=== PATIENT | female | born 1965 | race Caucasian/White ===

== ENCOUNTER 2025-05-17 15:26 | Inpatient (IN) | payer OTHER ==
[~2025-05-17] VITALS: Ht 167.6 cm; Wt 86.3 kg
[2025-05-17 16:48] LABS: PLATELET COUNT (AUTO) 124 K/uL (150-450); RED BLOOD CELL COUNT(AUTO) 3.81 MIL/uL (4.00-5.20); RED CELL DISTRIBUTION WIDTH 18.4 % (11.5-14.5); WHITE BLOOD COUNT (AUTO) 6.4 K/uL (4.5-11.0)
[2025-05-17 16:56] LABS: CALCIUM, TOTAL 9.2 mg/dL (8.8-10.5); CREATININE 0.84 mg/dL (0.60-1.30); GLOMERULAR FILTR. RATE CALC > 60 mL/min (>60); GLUCOSE,RANDOM 93 mg/dL (70-110); SODIUM SERUM 136 mmol/L (136-145); UREA NITROGEN, BLOOD 8 mg/dL (7-18)
[2025-05-17 17:29] LABS: PH,URINE DRUG SCREEN 6.5 (5.0-8.0)
[2025-05-17 17:34] LABS: AMPHET/METH SCREEN,URINE NEGATIVE (NEGATIVE); BARBITURATE SCREEN, URINE NEGATIVE (NEGATIVE); CANNABINOID SCREEN,URINE NEGATIVE (NEGATIVE); COCAINE SCREEN,URINE NEGATIVE (NEGATIVE); METHADONE SCREEN, URINE NEGATIVE (NEGATIVE)
[2025-05-17 17:35] LABS: ALCOHOL, URINE DRUG SCREEN POSITIVE (NEGATIVE)
[2025-05-17] MEDS: 1: MAGNESIUM SULFATE 2 GM, MVI, ADULT NO.1 WITH VIT K 10 ML, THIAMINE 100 MG, FOLIC ACID IV SCH (20:42)
[2025-05-17] MEDS: DOCUSATE SODIUM 100 MG CAPSULE PO SCH (21:00)
[2025-05-17] MEDS: ONDANSETRON HCL 4 MG/2 ML VIAL IVP PRN (21:36)
[2025-05-17 22:19] VITALS: BP 140/87; PULSE 86; RESP 18; TEMP 97.9; O2SAT 94
[2025-05-18] MEDS: HEPARIN SODIUM,PORCINE 5,000 UNITS/ML VIAL SQ SCH (01:36)
[2025-05-18] MEDS ORDERED: DEXTROSE 50%-WATER 25 GM/50 ML SYRINGE IVP PRN (02:30)
[2025-05-18 05:06] VITALS: BP 147/85; PULSE 78; RESP 18; TEMP 98.1; O2SAT 95
[2025-05-18 07:26] LABS: CALCIUM, TOTAL 9.0 mg/dL (8.8-10.5); CREATININE 0.63 mg/dL (0.60-1.30); GLOMERULAR FILTR. RATE CALC > 60 mL/min (>60); GLUCOSE,RANDOM 121 mg/dL (70-110); SODIUM SERUM 131 mmol/L (136-145); UREA NITROGEN, BLOOD 7 mg/dL (7-18)
[2025-05-18 07:27] LABS: PLATELET COUNT (AUTO) 106 K/uL (150-450); RED BLOOD CELL COUNT(AUTO) 3.69 MIL/uL (4.00-5.20); RED CELL DISTRIBUTION WIDTH 17.8 % (11.5-14.5); WHITE BLOOD COUNT (AUTO) 5.2 K/uL (4.5-11.0)
[2025-05-18 07:51] LABS: GLUCOMETER DEV NAME(LOC) 6N.2C; GLUCOSE,POINT OF CARE 131 MG/DL (70-110)
[2025-05-18 08:00] VITALS: BP 172/96; PULSE 104; RESP 19; TEMP 100.6; O2SAT 97
[2025-05-18 09:22] VITALS: TEMP 99.3
[2025-05-18] MEDS: ACETAMINOPHEN 325 MG TABLET PO PRN (10:01)
[2025-05-18 10:39] LABS: RBC MORPHOLOGY COMMENT ABNORMAL RBC MORPH
[2025-05-18] MEDS: INSULIN LISPRO 100 UNITS/ML SQ PRN (11:58)
[2025-05-18] MEDS: LORazepam 2 MG/ML VIAL IVP ONE (12:29)
[2025-05-18] MEDS: PIPERACILLIN/TAZO 3.375 GM/D5W 50 ML IV SCH (12:29)
[2025-05-18] MEDS: LABETALOL HCL 5 MG/ML 20 ML VIAL IVP PRN (13:09)
[2025-05-18 13:25] VITALS: TEMP 98.2
[2025-05-18 13:36] LABS: GLUCOMETER DEV NAME(LOC) 6N.2C; GLUCOSE,POINT OF CARE 151 MG/DL (70-110)
[2025-05-18] MEDS ORDERED: SODIUM CHLORIDE 0.9% 250 ML IV ONE (14:30)
[2025-05-18] MEDS: DEXMEDETOMIDINE 400 MCG/NS 100 ML IV PRN (14:31)
[2025-05-18 16:00] VITALS: PULSE 94; TEMP 99.5
[2025-05-18] MEDS: LORazepam 2 MG/ML VIAL IVP PRN (16:03)
[2025-05-18] MEDS: FLUTICASONE PROPIONATE 50 MCG/SPRAY 16 GM NASAL SPRAY NASAL SCH (17:45)
[2025-05-18] MEDS: LABETALOL HCL 100 MG TABLET PO SCH (18:10)
[2025-05-18 20:00] VITALS: BP 103/80; PULSE 102; RESP 14; TEMP 99.2
[2025-05-18 20:20] LABS: GLUCOMETER DEV NAME(LOC) ICUN.7; GLUCOSE,POINT OF CARE 104 MG/DL (70-110)
[2025-05-19] VITALS (7 sets, daily range): BP systolic 81–131; BP diastolic 46–85; PULSE 70–83; RESP 14–18; TEMP 97–98.8; O2SAT 94–100
[2025-05-19 04:06] LABS: GLUCOMETER DEV NAME(LOC) ICU.S7; GLUCOSE,POINT OF CARE 113 MG/DL (70-110)
[2025-05-19 05:54] LABS: PLATELET COUNT (AUTO) 77 K/uL (150-450); RED BLOOD CELL COUNT(AUTO) 3.54 MIL/uL (4.00-5.20); RED CELL DISTRIBUTION WIDTH 17.1 % (11.5-14.5); WHITE BLOOD COUNT (AUTO) 4.1 K/uL (4.5-11.0)
[2025-05-19 06:03] LABS: CALCIUM, TOTAL 9.2 mg/dL (8.8-10.5); CREATININE 0.75 mg/dL (0.60-1.30); GLOMERULAR FILTR. RATE CALC > 60 mL/min (>60); GLUCOSE,RANDOM 111 mg/dL (70-110); SODIUM SERUM 128 mmol/L (136-145); UREA NITROGEN, BLOOD 11 mg/dL (7-18)
[2025-05-19 08:04] LABS: RBC MORPHOLOGY COMMENT ABNORMAL RBC MORPH
[2025-05-19 08:16] LABS: GLUCOMETER DEV NAME(LOC) ICU.S7; GLUCOSE,POINT OF CARE 143 MG/DL (70-110)
[2025-05-19 11:16] LABS: GLUCOMETER DEV NAME(LOC) ICUN.7; GLUCOSE,POINT OF CARE 144 MG/DL (70-110)
[2025-05-19 19:55] LABS: GLUCOMETER DEV NAME(LOC) ICU.S7; GLUCOSE,POINT OF CARE 124 MG/DL (70-110)
[2025-05-20 00:31] VITALS: BP 92/58; PULSE 69; RESP 16; TEMP 98.1; O2SAT 97
[2025-05-20 04:28] VITALS: BP 110/71; PULSE 72; RESP 17; TEMP 98.1; O2SAT 99
[2025-05-20 07:55] VITALS: BP 122/80; PULSE 71; RESP 18; TEMP 98; O2SAT 98
[2025-05-20 10:57] VITALS: BP 117/66; PULSE 64; RESP 18; TEMP 97.8; O2SAT 97
[2025-05-20 15:23] VITALS: BP 141/90; PULSE 75; RESP 19; TEMP 98.2; O2SAT 97
[2025-05-20] MEDS ORDERED: SODIUM CHLORIDE 0.9% 0 ML ONE (15:25)
[2025-05-21 08:26] LABS: GLUCOMETER DEV NAME(LOC) 5S.1E; GLUCOSE,POINT OF CARE 109 MG/DL (70-110)
[2025-05-21 08:26] LABS: GLUCOMETER DEV NAME(LOC) 5S.1E; GLUCOSE,POINT OF CARE 102 MG/DL (70-110)
[2025-05-21 08:26] LABS: GLUCOMETER DEV NAME(LOC) 5S.1E; GLUCOSE,POINT OF CARE 99 MG/DL (70-110)
== END 2025-05-20 17:00 | disposition short-term general hospital (02) | DRG 91 ==
LOC: EMS 15:37 → EDH 20:08 → 6S 22:03 → ICU 05-18 13:20 → 5S 05-19 18:40
PROVIDERS: ADMIT Internal Medicine; ATTEND Internal Medicine
DX: G92.8 Other toxic encephalopathy (principal); J69.0 Pneumonitis due to inhalation of food and vomit; F10.239 Alcohol dependence with withdrawal, unspecified; E46 Unspecified protein-calorie malnutrition; E11.9 Type 2 diabetes mellitus without complications; E87.1 Hypo-osmolality and hyponatremia; F10.229 Alcohol dependence with intoxication, unspecified; F41.9 Anxiety disorder, unspecified; Y90.8 Blood alcohol level of 240 mg/100 ml or more; Z68.30 Body mass index [BMI] 30.0-30.9, adult
CPT/HCPCS: 70450; 71250; 72125; 80048; 80307; 82962; 83735; 85025; 87081; 96365; 96366; 97116; 97162; 99285; G0480; J1644; J2060; J2405; J2543; J3411; J3475; J3490; J7030; J7050; 36415-L1; 36415-TC

== ENCOUNTER 2025-06-18 14:07 | Inpatient (IN) | payer OTHER ==
[~2025-06-18] VITALS: Ht 172.7 cm; Wt 72.2 kg
[2025-06-18 16:02] LABS: CALCIUM, TOTAL 8.9 mg/dL (8.8-10.5); CREATININE 1.35 mg/dL (0.60-1.30); GLOMERULAR FILTR. RATE CALC 40 mL/min (>60); GLUCOSE,RANDOM 81 mg/dL (70-110); SODIUM SERUM 136 mmol/L (136-145); UREA NITROGEN, BLOOD 19 mg/dL (7-18)
[2025-06-18 16:03] LABS: RED BLOOD CELL COUNT(AUTO) 3.77 MIL/uL (4.00-5.20); RED CELL DISTRIBUTION WIDTH 13.9 % (11.5-14.5); WHITE BLOOD COUNT (AUTO) 8.4 K/uL (4.5-11.0)
[2025-06-18 16:06] LABS: ASPARTATE AMINOTRANSFERASE 82.0 U/L (15-37); TOTAL PROTEIN, SERUM 8.1 g/dL (6.4-8.2)
[2025-06-18 16:09] LABS: ALCOHOL, BLOOD (SERUM) 74.0 mg/dL (0-10)
[2025-06-18 16:12] LABS: TROPONIN I-HIGH SENSITIVITY 6 ng/L (<51)
[2025-06-18 16:29] LABS: PLATELET COUNT (AUTO) 90 K/uL (150-450); RBC MORPHOLOGY COMMENT ABNORMAL RBC MORPH
[2025-06-18] MEDS: POTASSIUM CHL 10 MEQ/WATER 50 ML IV ONE (16:50)
[2025-06-18] MEDS: POTASSIUM CHLORIDE 20 MEQ ER TABLET PO ONE (16:50)
[2025-06-18] MEDS: MAGNESIUM SULFATE 1 GM in DEXTROSE 5%-WATER 50 ML IV ONE (17:16)
[2025-06-18 19:17] LABS: APPEARANCE,URINE HAZY (CLEAR); GLUCOSE, URINE (UA) NEGATIVE (NEGATIVE); LEUKOCYTE ESTERASE ,URINE SMALL (NEGATIVE); NITRATE,URINE POSITIVE (NEGATIVE); OCCULT BLOOD,URINE TRACE (NEGATIVE); PH,URINE DRUG SCREEN 6.0 (5.0-8.0); SPECIFIC GRAVITIY, URINE 1.016 (1.003-1.030)
[2025-06-18 19:20] LABS: ALCOHOL, URINE DRUG SCREEN NEGATIVE (NEGATIVE); AMPHET/METH SCREEN,URINE NEGATIVE (NEGATIVE); BARBITURATE SCREEN, URINE NEGATIVE (NEGATIVE); CANNABINOID SCREEN,URINE NEGATIVE (NEGATIVE); COCAINE SCREEN,URINE NEGATIVE (NEGATIVE); METHADONE SCREEN, URINE NEGATIVE (NEGATIVE)
[2025-06-18 19:56] LABS: SQUAMOUS EPITHELIAL CELL,UR Few /LPF (None Seen)
[2025-06-18] MEDS ORDERED: BISACODYL 10 MG RECTAL RECTAL SUPPOSITORY PR PRN (20:00)
[2025-06-18] MEDS ORDERED: ZOLPIDEM TARTRATE 5 MG TABLET PO PRN (20:00)
[2025-06-18] MEDS ORDERED: MAGNESIUM HYDROXIDE SUSPENSION 30 ML UDCUP PO PRN (20:00)
[2025-06-18] MEDS ORDERED: ONDANSETRON HCL 4 MG/2 ML VIAL IVP PRN (20:00)
[2025-06-18] MEDS: MAGNESIUM SULFATE 2 GM, MVI, ADULT NO.1 WITH VIT K 10 ML, THIAMINE 100 MG, FOLIC ACID 1... IV ONE (20:24)
[2025-06-18] MEDS: DOCUSATE SODIUM 100 MG CAPSULE PO SCH (20:33)
[2025-06-18] MEDS: MORPHINE SULFATE 4 MG/ML SYRINGE IVP PRN (22:12)
[2025-06-18] MEDS: HEPARIN SODIUM,PORCINE 5,000 UNITS/ML VIAL SQ SCH (23:14)
[2025-06-19 02:47] VITALS: BP 103/55; PULSE 80; RESP 18; TEMP 98.8; O2SAT 93
[2025-06-19 04:29] VITALS: BP 104/52; PULSE 79; RESP 18; TEMP 98.2; O2SAT 96
[2025-06-19] MEDS: ACETAMINOPHEN 325 MG TABLET PO PRN (06:06)
[2025-06-19 07:09] LABS: CALCIUM, TOTAL 8.1 mg/dL (8.8-10.5); CREATININE 1.17 mg/dL (0.60-1.30); GLOMERULAR FILTR. RATE CALC 47.0 mL/min (>60); GLUCOSE,RANDOM 60.0 mg/dL (70-110); SODIUM SERUM 135.0 mmol/L (136-145); UREA NITROGEN, BLOOD 23.0 mg/dL (7-18)
[2025-06-19 07:11] LABS: PLATELET COUNT (AUTO) 68 K/uL (150-450); RED BLOOD CELL COUNT(AUTO) 3.16 MIL/uL (4.00-5.20); RED CELL DISTRIBUTION WIDTH 13.7 % (11.5-14.5); WHITE BLOOD COUNT (AUTO) 7.1 K/uL (4.5-11.0)
[2025-06-19 08:00] VITALS: BP 122/75; PULSE 81; RESP 18; TEMP 98.2; O2SAT 96
[2025-06-19] MEDS: PANTOPRAZOLE SODIUM 40 MG DR TABLET PO SCH (08:22)
[2025-06-19 12:00] VITALS: BP 120/78; PULSE 78; RESP 19; TEMP 98.1; O2SAT 97
[2025-06-19 16:00] VITALS: BP 125/76; PULSE 83; RESP 18; TEMP 98.2; O2SAT 98
[2025-06-19] MEDS: HYDROCODONE/ACETAMINOPHEN 5-325 MG TABLET PO PRN (16:21)
[2025-06-19] MEDS: POTASSIUM CHLORIDE 20 MEQ ER TABLET PO ONE (17:25)
== END 2025-06-19 20:55 | disposition short-term general hospital (02) | DRG 92 ==
LOC: EMS 14:07 → EDH 17:45 → 5S 06-19 02:12
PROVIDERS: ADMIT Internal Medicine; ATTEND Internal Medicine
DX: G92.8 Other toxic encephalopathy (principal); N17.9 Acute kidney failure, unspecified; E83.51 Hypocalcemia; F10.129 Alcohol abuse with intoxication, unspecified; E11.9 Type 2 diabetes mellitus without complications; E87.6 Hypokalemia; E83.42 Hypomagnesemia; Y90.3 Blood alcohol level of 60-79 mg/100 ml; R29.6 Repeated falls
CPT/HCPCS: 70450; 71045; 72125; 80048; 80076; 80307; 81001; 83735; 83880; 84484; 85025; 87077; 87086; 87186; 93005; 96365; 96366; 96367; 96375; 97116; 97162; G0378; G0480; J1644; J2270; J3411; J3475; J3480; J3490; J7030; J7060; 36415-L1; 36415-TC